=== PATIENT | female | born 1965 | race Caucasian/White ===

== ENCOUNTER 2016-04-16 16:44 | Emergency (ER) | payer OTHER ==
--- NOTE | 2016-04-16 17:46 | UC ---
Respiratory Complaint HPI - HPI Summary HPI Summary: low grade temp body aches cough, felt a little light headed today - History of Current Complaint Chief Complaint: UCGeneralIllness Stated Complaint: COUGH/ACHEY Time Seen by Provider: 04/16/16 17:36 Hx Obtained From: Patient Hx Last Menstrual Period: 04/15/16 ?: No Onset/Duration: Gradual Onset, Lasting Days - 2 Timing: Constant Severity Initially: Mild Character: Cough: Nonproductive Aggravating Factors: Nothing Alleviating Factors: Nothing Associated Signs And Symptoms: Positive: Fever, Pleuritic Chest Pain, URI - Allergies/Home Medications Allergies/Adverse Reactions: Allergies Allergy/AdvReac Type Severity Reaction Status Date / Time Latex Allergy Intermediate RASH, Verified 04/16/16 17:42 IRRITATION Sulfa Antibiotics Allergy Intermediate Rash Verified 04/16/16 17:42 Eggs or Egg-derived Products Allergy Mild water Verified 04/16/16 17:42 blisters Home Medications: Home Medications Ibuprofen TAB* [Advil TAB*] 200 mg PO Q6H PRN 04/16/16 [History Confirmed ] [id number] [Nyquil Severe Cold/Flu 5-6.25-10-325 mg/15Ml] 15 ml PO ONCE PRN 04/16/16 [History Confirmed 04/16/16] PMH/Surg Hx/FS Hx/Imm Hx Previously Healthy: Yes Endocrine History Of: Denies: Diabetes, Thyroid Disease, Hyperthyroidism, Hypothyroidism, Dyslipidemia Cardiovascular History Of: Denies: Cardiac Disorders, Hypertension, Pacemaker/ICD, Myocardial Infarction , Congestive Heart Failure, Atrial Fibrillation, Deep Vein Thrombosis, Bleeding Disorders Respiratory History Of: Denies: COPD, Asthma, Bronchitis, Pneumonia, Pulmonary Embolism GI/ History Of: Denies: Gastroesophageal Reflux, Ulcer, Gastrointestinal Bleed, Gall Bladder Disease, Kidney Stones, Diverticulitis, Renal Disease, Urosepsis Neurological History Of: Denies: TIA, CVA, Dementia, Seizures, Migraine Psychological History Of: Denies: Anxiety, Depression, Bipolar Disorder, Schizophrenia, Post Traumatic Stress Disorder Cancer History Of: Denies: Lung Cancer, Colorectal Cancer, Breast Cancer, Prostate Cancer, Cervical Cancer Other History Of: Negative For: HIV, Hepatitis B, Hepatitis C, Anticoagulant Therapy - Surgical History Surgical History: Yes Surgery Procedure, Year, and Place: EXCISION SKIN CA LEFT FOREHEAD - Family History Known Family History: Positive: None, Cardiac Disease, Other Negative: Renal Disease - Social History 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 Lives: Alone Alcohol Use: Rare Substance Use Type: None Smoking Status (MU): Former Smoker Type: Cigarettes Have You Smoked in the Last Year: No When Did the Patient Quit Smoking/Using Tobacco: 2009 - Immunization History Most Recent Influenza Vaccination: [id number] Review of Systems Constitutional: Fever, Fatigue Skin: Negative Eyes: Negative ENT: Negative Respiratory: Cough Cardiovascular: Negative Gastrointestinal: Negative Genitourinary: Negative Motor: Negative Neurovascular: Negative Musculoskeletal: Negative Neurological: Negative Psychological: Negative All Other Systems Reviewed And Are Negative: Yes Physical Exam Triage Information Reviewed: Yes Appearance: Well-Appearing, No Pain Distress, Well-Nourished Vital Signs: Initial Vital Signs Temp 99.3 F 04/16/16 17:32 Pulse 86 04/16/16 17:32 Resp 16 04/16/16 17:32 BP 103/59 04/16/16 17:32 Pulse Ox 97 04/16/16 17:32 Vital Signs Reviewed: Yes Eye Exam: Normal Eyes: Positive: Conjunctiva Clear ENT Exam: Normal ENT: Positive: Normal ENT inspection, Hearing grossly normal, Pharynx normal, Nasal congestion, TMs normal. Negative: Nasal drainage, Tonsillar swelling, Tonsillar exudate, Trismus Neck exam: Normal Neck: Positive: Supple, Nontender, No Lymphadenopathy Respiratory Exam: Normal Respiratory: Positive: Chest non-tender, Lungs clear, Normal breath sounds, No respiratory distress, No accessory muscle use Cardiovascular Exam: Normal Cardiovascular: Positive: RRR, No Murmur, Pulses Normal, Brisk Capillary Refill Musculoskeletal Exam: Normal Musculoskeletal: Positive: Strength Intact, ROM Intact, No Edema Neurological Exam: Normal Neurological: Positive: Alert, Muscle Tone Normal Psychological Exam: Normal Skin Exam: Normal UC Diagnostic Evaluation - Laboratory O2 Sat by Pulse Oximetry: 97 Diagnostic Studies Comment: Rapid Influenza A/B (-) Respiratory Course/Dx - Course Course Of Treatment: rest increase fluids, albuterol for bronchospastic cough, zithromax, follow with pcp re-check prn - Differential Dx/Diagnosis Differential Diagnosis/HQI/PQRI: Asthma, Bronchitis, Laryngitis, Sinusitis Provider Diagnoses: Bronchitis Discharge - Discharge Plan Condition: Stable Disposition: HOME Prescriptions: Albuterol HFA INHALER* [Ventolin HFA Inhaler*] 2 puff INH Q4H PRN #1 mdi PRN Reason: cough Azithromycin TAB* [Zithromax TAB (Z-BOBBY) 250 mg #6 tabs] 2 tab PO .TODAY, THEN 1 DAILY #1 bobby Patient Education Materials: Dehydration (ED), Acute Bronchitis (ED), Viral Syndrome (ED) Forms: *Work Release Referrals: No Primary Care Phys,NOPCP [Primary Care Provider] -
[2016-04-16 18:24] VITALS: BP 102/69
== END 2016-04-16 19:11 | disposition home or self-care (01) ==
LOC: UCCORT 16:44
DX: J40 Bronchitis, not specified as acute or chronic (principal); Z85.828 Personal history of other malignant neoplasm of skin; Z87.891 Personal history of nicotine dependence; Z88.2 Allergy status to sulfonamides
CPT/HCPCS: 87502; 99212; G0463

== ENCOUNTER 2016-11-04 20:30 | Emergency (ER) | payer SELFPAY ==
[2016-11-04 20:38] VITALS: BP 126/77
--- NOTE | 2016-11-04 20:48 | UC ---
Skin Complaint HPI - HPI Summary HPI Summary: 51 YEAR OLD FEMALE PRESENTS WITH COMPLAINS ABSCESS OF HER RIGHT UPPER LABIA MAJORA. NOT TYPICAL POSITIONING FOR A BARTOLIN CYSTS - History of Current Complaint Chief Complaint: UCGeneralIllness Time Seen by Provider: 11/04/16 20:43 Stated Complaint: RASH Hx Obtained From: Patient Hx Last Menstrual Period: 11/07/16 Onset/Duration: Sudden Onset Skin Exposure Onset/Duration: Days Ago Onset Severity: Moderate Current Severity: Moderate Pain Scale Used: 0-10 Numeric - 5 Location: Diffuse Aggravating: Nothing Alleviating: Nothing Associated Signs & Symptoms: Positive: Negative - Allergy/Home Medications Allergies/Adverse Reactions: Allergies Allergy/AdvReac Type Severity Reaction Status Date / Time Latex Allergy Intermediate RASH, Verified 11/04/16 20:33 IRRITATION Sulfa Antibiotics Allergy Intermediate Rash Verified 11/04/16 20:33 Eggs or Egg-derived Products Allergy Mild water Verified 11/04/16 20:33 blisters Review of Systems Constitutional: Negative Skin: Negative Eyes: Negative ENT: Negative Respiratory: Negative Cardiovascular: Negative Gastrointestinal: Negative Genitourinary: Other - RIGHT UPPER LABIA MAJORA ABSCESS Motor: Negative Neurovascular: Negative Musculoskeletal: Negative Neurological: Negative Psychological: Negative All Other Systems Reviewed And Are Negative: Yes PMH/Surg Hx/FS Hx/Imm Hx Previously Healthy: Yes Other History Of: Negative For: HIV, Hepatitis B, Hepatitis C, Anticoagulant Therapy - Surgical History Surgical History: Yes Surgery Procedure, Year, and Place: EXCISION SKIN CA LEFT FOREHEAD - Family History Known Family History: Positive: None, Cardiac Disease, Other Negative: Renal Disease - Social History Alcohol Use: Rare Substance Use Type: None Smoking Status (MU): Former Smoker Type: Cigarettes Have You Smoked in the Last Year: No When Did the Patient Quit Smoking/Using Tobacco: 2009 - Immunization History Most Recent Influenza Vaccination: [id number] Physical Exam Triage Information Reviewed: Yes Vital Signs: Initial Vital Signs Temp 36.6 C 11/04/16 20:34 Pulse 67 11/04/16 20:34 Resp 16 11/04/16 20:34 BP 126/77 11/04/16 20:34 Pulse Ox 99 11/04/16 20:34 Vital Signs Reviewed: Yes Eye Exam: Normal ENT Exam: Normal Dental Exam: Normal Neck exam: Normal Neck: Positive: 1 Respiratory Exam: Normal Cardiovascular Exam: Normal Abdominal Exam: Normal Musculoskeletal Exam: Normal Neurological Exam: Normal Psychological Exam: Normal Skin: Positive: Other - RIGHT UPPER LABIA MAJORA ABSCESS Course/Dx - Differential Diagnoses - Skin Complaint Differential Diagnoses: Abscess - Diagnoses Provider Diagnoses: RIGHT LABIA MAJORA ABSCESS Discharge - Discharge Plan Condition: Stable Disposition: HOME Prescriptions: DOXYcycline CAP(*) [DOXYcycline 100MG CAP(*)] 100 mg PO BID #14 cap Fluconazole [Fluconazole 150 mg tab] 150 mg PO ONCE #1 tab Mupirocin 2% OINT* [Bactroban 2 % Oint*] 1 applic TOPICAL BID #1 tube Patient Education Materials: Abscess (ED) Referrals: No Primary Care Phys,NOPCP [Primary Care Provider] -
[2016-11-04] MEDS ORDERED: DOXYcycline CAP(*) 100 MG PO ONE (20:49)
== END 2016-11-04 21:08 | disposition home or self-care (01) ==
LOC: UCEAST 20:30
DX: N76.4 Abscess of vulva (principal); Z88.2 Allergy status to sulfonamides; Z91.012 Allergy to eggs; Z91.040 Latex allergy status; Z87.891 Personal history of nicotine dependence
CPT/HCPCS: 99212; A9270-GY; G0463

== ENCOUNTER 2017-03-06 21:14 | Emergency (ER) | payer BC ==
[2017-03-06 21:35] VITALS: BP 116/74
--- NOTE | 2017-03-06 22:13 | UC ---
Karolyn Andino Nilda, scribed for Dinh Andrews MD on 03/06/17 at 2203 . Back Pain HPI - HPI Summary HPI Summary: This patient is a 51 year old F [place] [facility] [place] a chief complaint of moderate, intermittent throbbing pain in right back under shoulder that wraps around side to right rib cage for the past few months. Pain has gradually become worse to the point where pt "can no longer ignore it." At its worse, pain is rated 7-8 in severity and at its mildest pain is rated 3-4. The patient rates the current pain 6/10 in severity. Symptoms aggravated by deep inspiration. Symptoms alleviated by stretching and exercise. Patient reports dry cough, sore throat (past few days, resolved), and cramping in bilat LE and feet. Patient denies loss of appetite, bowel and urinary issues, and SOB. 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 - History of Current Complaint Chief Complaint: UCBackPain Stated Complaint: RIB,SHOULDER & BACK PAIN Time Seen by Provider: 03/06/17 21:39 Hx Obtained From: Patient Hx Last Menstrual Period: 02/22/17 Onset/Duration: Gradual Onset, Lasting Weeks, Still Present Timing: Intermittent Severity Currently: Moderate Pain Intensity: 6 Pain Scale Used: 0-10 Numeric Back Pain: Is Discrete @ - throbbing pain in right back under right shoulder that radiates to right rib cage for the past few months Character: Throbbing Aggravating Factor(s): Other - deep breathing Alleviating Factor(s): Other - stretching, exercise Associated Signs And Symptoms: Positive: Other - Patient reports dry cough, sore throat (past few days, resolved), and cramping in LE and feet. Patient denies loss of appetite, bowel and urinary issues, and SOB. - Allergies/Home Medications Allergies/Adverse Reactions: Allergies Allergy/AdvReac Type Severity Reaction Status Date / Time Latex Allergy Intermediate RASH, Verified 03/06/17 21:36 IRRITATION Sulfa Antibiotics Allergy Intermediate Rash Verified 03/06/17 21:36 Eggs or Egg-derived Products Allergy Mild water Verified 03/06/17 21:36 blisters SPIDER BITES Allergy Severe Swelling Uncoded 03/06/17 21:36 Home Medications: Home Medications Collagen* 1 tab PO DAILY 03/06/17 [History Confirmed 03/06/17] Multiple Vitamins W/ Minerals [Multivitamin Adults] 1 tab PO DAILY 03/06/17 [ History Confirmed 03/06/17] Probiotic Product [Acidophilus] 1 cap PO DAILY 03/06/17 [History Confirmed 03/06] PMH/Surg Hx/FS Hx/Imm Hx - Additional Past Medical History Additional PMH: MRSA Other History Of: Negative For: HIV, Hepatitis B, Hepatitis C, Anticoagulant Therapy - Surgical History Surgical History: Yes Surgery Procedure, Year, and Place: EXCISION SKIN CA LEFT FOREHEAD - Family History Known Family History: Negative: Cardiac Disease, Renal Disease - Social History 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 Alcohol Use: Rare Substance Use Type: None Smoking Status (MU): Former Smoker Type: Cigarettes Have You Smoked in the Last Year: No When Did the Patient Quit Smoking/Using Tobacco: 2009 - Immunization History Most Recent Influenza Vaccination: [id number] Review of Systems ENT: Sore Throat - resolved Respiratory: Cough - dry cough, Other - negative SOB Gastrointestinal: Other - negative loss of appetite, bowel issues Genitourinary: Other - negative urinary issues Musculoskeletal: Other: - throbbing pain in right back under right shoulder that wraps around side to right rib cage, intermittent cramping in LE and feet All Other Systems Reviewed And Are Negative: Yes Physical Exam Triage Information Reviewed: Yes Vital Signs: Initial Vital Signs Temp 97.4 F 03/06/17 21:31 Pulse 83 03/06/17 21:31 Resp 16 03/06/17 21:31 BP 116/74 03/06/17 21:31 Pulse Ox 96 03/06/17 21:31 Vital Signs Reviewed: Yes - Additional Comments General: well-appearing, no pain distress Skin: warm, color reflects adequate perfusion, dry Head: normal Eyes: EOMI, ANGEL ENT: normal Neck: supple, nontender Respiratory: CTA, breath sounds present Cardiovascular: RRR Abdomen: soft, nontender Bowel: present Musculoskeletal: strength/ROM intact, tender to palpation on lower lumbar in right paraspinal muscles; pt states this was the pain she came in with. Calves normal. Neurological: normal, sensory/motor intact, A&O x3 Psychological: affect/mood appropriate Diagnostics - EKG Cardiac Rate: NL Cardiac Rhythm: Sinus: Normal - 77bpm Ectopy: None ST Segment: Normal Back Pain Course/Dx - Course Course Of Treatment: Medications reviewed. Allergies noted. An EKG reveals NSR , 77 bpm, normal ST, no ectopy. TENDER TO PALPATION RT LOWER THORACIC BACK; THIS REPRODUCES HER PAIN. F/U PMD; RETURN IF WORSE. - Differential Dx/Diagnosis Provider Diagnoses: THORACIC BACK PAIN Discharge - Discharge Plan Condition: Stable Disposition: HOME Patient Education Materials: Back Pain (ED) Referrals: Kierra Barney DO [Primary Care Provider] - Additional Instructions: FOLLOW UP WITH YOUR DOCTOR. GET RECHECKED FOR ANY WORSENING OF YOUR CONDITION; CHEST OR ABDOMINAL PAIN, FEVER, SHORTNESS OF BREATH, YOU FEEL ILL OR QUESTIONS OR CONCERNS. The documentation as recorded by the Karolyn amaro Nilda accurately reflects the service I personally performed and the decisions made by me, Dinh Andrews MD.
== END 2017-03-06 22:09 | disposition home or self-care (01) ==
LOC: UCEAST 21:14
DX: M54.6 Pain in thoracic spine (principal); R07.81 Pleurodynia; M25.511 Pain in right shoulder; Z91.030 Bee allergy status; Z91.012 Allergy to eggs; Z91.040 Latex allergy status; Z88.2 Allergy status to sulfonamides; Z87.891 Personal history of nicotine dependence
CPT/HCPCS: 93005; 99211; G0463

== ENCOUNTER 2017-08-01 08:18 | Emergency (ER) | payer BC ==
[2017-08-01 08:47] VITALS: BP 125/69
--- NOTE | 2017-08-01 09:24 | UC ---
Conor Andino Stephanie, [facility] for [facility] on 08/01/17 at 0858 . Complaint Female HPI - HPI Summary HPI Summary: In Room Note: The pt is a 52 y/o F presenting to with c/o vaginal itching that began on 07/28/17. Symptoms include redness on the outside of her vulva. The pt denies vaginal odor/ discharge. The pt denies hx of STDs. She reports abstinence for 7 months. She reports she has not been taking care of her body for the past few weeks. Note: Vital signs stable. Afebrile. Visit hx: intermittent UTI. Multiple allergies including sulfa. Using monostat, possible MRSA, February 2017. Nurse Note: "I think I have BV" Itching and irritation started about 3-4 days ago, thought it was a yeast infection using monostat for 3 days. No Odor and no Discharge. - History Of Current Complaint Chief Complaint: UCGeneralIllness Stated Complaint: PERSONAL Time Seen by Provider: 08/01/17 08:34 Hx Obtained From: Patient Hx Last Menstrual Period: 07/17/17 ?: No Onset/Duration: Gradual Onset, Lasting Days - 4, Still Present Timing: Constant Severity Currently: Mild Pain Intensity: 0 Pain Scale Used: 0-10 Numeric Aggravating Factor(s): Nothing Alleviating Factor(s): Nothing Associated Signs And Symptoms: Negative: Fever, Vaginal Bleeding/Discharge, Vaginal Discharge - Allergies/Home Medications Allergies/Adverse Reactions: Allergies Allergy/AdvReac Type Severity Reaction Status Date / Time egg Allergy Blisters Verified 08/01/17 08:39 Egg Derived Allergy Blisters Verified 08/01/17 08:39 latex Allergy Rash Verified 08/01/17 08:39 Sulfa (Sulfonamide Allergy Rash Verified 08/01/17 08:39 Antibiotics) SPIDER BITES Allergy Severe Swelling Uncoded 03/06/17 21:36 Home Medications: Home Medications Monostat 1 tab PO DAILY 08/01/17 [History] PMH/Surg Hx/FS Hx/Imm Hx Previously Healthy: Yes - She denies diabetes. Other History Of: Negative For: HIV, Hepatitis B, Hepatitis C, Anticoagulant Therapy - Surgical History Surgical History: Yes Surgery Procedure, Year, and Place: EXCISION SKIN CA LEFT FOREHEAD - Family History Known Family History: Positive: Other Negative: Cardiac Disease, Renal Disease - Social History 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 Lives: With Family Alcohol Use: Rare Substance Use Type: None Smoking Status (MU): Former Smoker Type: Cigarettes Have You Smoked in the Last Year: No When Did the Patient Quit Smoking/Using Tobacco: 2009 - Immunization History Most Recent Influenza Vaccination: [id number] Most Recent Tetanus Shot: UTD Review of Systems Constitutional: Negative Skin: Negative Eyes: Negative ENT: Negative Respiratory: Negative Cardiovascular: Negative Gastrointestinal: Negative Genitourinary: Vaginal/Penile Itching, Vaginal/Penile Tenderness Motor: Negative Neurovascular: Negative Musculoskeletal: Negative Neurological: Negative Psychological: Negative All Other Systems Reviewed And Are Negative: Yes - Comments Additional Review of Systems Comments: POSITIVE: VAGINAL ITCHING, ERYTHEMA NEGATIVE: VAGINAL ODOR, VAGINAL DISCHARGE Physical Exam - Summary Physical Exam Summary: Appearance: The patient is well-appearing, is in no pain distress, and is well- nourished. Eyes: Conjunctiva are clear. ENT: The hearing is grossly normal, the pharynx is normal, and the TMs are normal. There is no muffled or hoarse voice. Neck: The neck is supple and there is no lymphadenopathy. Respiratory: The chest is nontender. The lungs are clear, there are normal breath sounds, and there is no respiratory distress. Cardiovascular: Heart is regular rate and rhythm. There is no murmur. Abdomen: The abdomen is soft and nontender. There is no organomegaly. Bowel sounds: present Musculoskeletal: Strength is intact. The patient moves all extremities. Neurological: The patient is alert. Psychological: The patient displays age appropriate behavior Skin: Negative for rashes. EXTERNAL GENITALIA EXAM: INJECTED IRRITATED MUCOSA AT THE BASE OF THE VAGINAL OPENING. NO CELULITIS OR LYMPHANGITIS. TO PALPATION THE AREA FEELS IRRITATED BUT NOT TENDER TO THE PT. Triage Information Reviewed: Yes Vital Signs: Initial Vital Signs Temp 97.3 F 08/01/17 08:39 Pulse 66 08/01/17 08:39 Resp 18 08/01/17 08:39 BP 125/69 08/01/17 08:39 Pulse Ox 100 08/01/17 08:39 Vital Signs Reviewed: Yes Complaint Female Dx - Course Course Of Treatment: Medications have been included in the original chart and reviewed. Patient presents with irritation of the external genitalia, at the entrance inferiorly. She does not have discharge. She is not sexually active. My diagnosis is skin irritation. There is no sign of cellulitis or lymphangitis. She has been instructed to decrease the number of times she uses soap to this area and to use triple antibiotic ointment 3 times a day to protect from abrasion. She will follow-up if there are any signs of cellulitis. - Differential Dx/Diagnosis Differential Diagnosis/HQI/PQRI: Bartholin Cyst, Sexually Transmitted Disease Provider Diagnoses: abrasion of mucosa of the vaginal entrance, inferior Discharge - Sign-Out/Discharge Documenting (check all that apply): Discharge/Admit/Transfer - Discharge Plan Condition: Stable Disposition: HOME Patient Education Materials: Yeast Infection (ED), Vaginitis (ED) Referrals: Christina Garvin MD [Primary Care Provider] - Additional Instructions: PLEASE SEEK CARE AT THE EMERGENCY DEPARTMENT IF SYMPTOMS WORSEN OR IF NEW SYMPTOMS DEVELOP. FOLLOW UP WITH YOUR PRIMARY CARE PHYSICIAN. As we discussed, you do not appear to have bacterial vaginosis or yeast. I've given him information about both these conditions. It is most likely have localized irritation from over washing the area around the entrance to the vagina. Use triple antibiotic ointment. The ointment as important so that it creates a barrier. Do not use soap frequently to this area. Given a opportunity to heal. Watch for any signs of infection which would include increased redness, red streaks, pain or temperature. Recheck at any time for any questions or concerns. - Billing Disposition and Condition Condition: STABLE Disposition: Home The documentation as recorded by the Conor amaro Stephanie accurately reflects the service I personally performed and the decisions made by me, Valentino Escobar MD.
== END 2017-08-01 09:25 | disposition home or self-care (01) ==
LOC: UCEAST 08:18
DX: S30.814A Abrasion of vagina and vulva, initial encounter (principal); X58.XXXA Exposure to other specified factors, initial encounter; Y93.9 Activity, unspecified; Y92.9 Unspecified place or not applicable; Z87.440 Personal history of urinary (tract) infections; Z88.2 Allergy status to sulfonamides; Z91.012 Allergy to eggs; Z91.040 Latex allergy status; Z87.891 Personal history of nicotine dependence
CPT/HCPCS: 99211; G0463

== ENCOUNTER 2017-08-02 19:06 | Emergency (ER) | payer BC ==
[2017-08-02 19:22] VITALS: BP 122/65
--- NOTE | 2017-08-02 19:23 | UC ---
Complaint Female HPI - HPI Summary HPI Summary: 52 yo female presents with vaginal redness, irritation, and notice some discharge this morning. She tells me that she was seen yesterday at the [facility] urgent care for the same issue and told it was skin irritation due to excessive washing - she does not agree with this diagnosis. Her vaginal irritation began about a week ago and has been using monistat OTC with no relief of her symptoms. Says she has not been sexually active in over 6 months and has no concern for STD or testing today. Denies dysuria, flank pain, abdominal pain, n/ v/d/c. - History Of Current Complaint Chief Complaint: UCGU Stated Complaint: PERSONAL Time Seen by Provider: 08/02/17 19:18 Hx Obtained From: Patient Hx Last Menstrual Period: [id number] Onset/Duration: Gradual Onset Timing: Constant Severity Currently: None Pain Intensity: 0 - Allergies/Home Medications Allergies/Adverse Reactions: Allergies Allergy/AdvReac Type Severity Reaction Status Date / Time egg Allergy Blisters Verified 08/02/17 19:23 Egg Derived Allergy Blisters Verified 08/02/17 19:23 latex Allergy Rash Verified 08/02/17 19:23 Sulfa (Sulfonamide Allergy Rash Verified 08/02/17 19:23 Antibiotics) SPIDER BITES Allergy Severe Swelling Uncoded 08/02/17 19:23 PMH/Surg Hx/FS Hx/Imm Hx - Additional Past Medical History Additional PMH: None Other History Of: Negative For: HIV, Hepatitis B, Hepatitis C, Anticoagulant Therapy - Surgical History Surgical History: Yes Surgery Procedure, Year, and Place: EXCISION SKIN CA LEFT FOREHEAD - Family History Known Family History: Positive: None, Other Negative: Cardiac Disease, Renal Disease - Social History 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 Lives: With Family Alcohol Use: Rare Substance Use Type: None Smoking Status (MU): Former Smoker Type: Cigarettes Have You Smoked in the Last Year: No When Did the Patient Quit Smoking/Using Tobacco: 2009 - Immunization History Most Recent Influenza Vaccination: [id number] Most Recent Tetanus Shot: UTD Review of Systems Constitutional: Negative Skin: Negative Respiratory: Negative Cardiovascular: Negative Genitourinary: Vaginal/Penile Itching, Vaginal/Penile Discharge Neurovascular: Negative Neurological: Negative Psychological: Negative All Other Systems Reviewed And Are Negative: Yes Physical Exam - Summary Physical Exam Summary: GENERAL: NAD. WDWN. No pain distress. SKIN: No rashes, sores, lesions, or open wounds. NECK: Supple. Nontender. No lymphadenopathy. CHEST: No accessory muscle use. Breathing comfortably and in no distress. CV: Pulses intact. Brisk cap refill. ABDOMEN: Soft. NTTP. No distention or guarding. No CVA tenderness. Bowel sounds present NEURO: Alert. CN II-XII grossly intact. PSYCH: Age appropriate behavior. Triage Information Reviewed: Yes Vital Signs: Initial Vital Signs Temp 98.3 F 08/02/17 19:18 Pulse 87 08/02/17 19:18 Resp 16 08/02/17 19:18 BP 122/65 08/02/17 19:18 Pulse Ox 99 08/02/17 19:18 Pelvic Exam: Positive: External Exam Normal, No Cerv. Motion Tender, No Masses, Discharge - Mild thin white and yellow, Other - Alexia RN present and assisted during the exam. Negative: Active Bleeding, Lesions, Mass, Tender w/ Cervical Motion Complaint Female Dx - Course Course Of Treatment: Culture taken for BV/Yeast. Suspect BV and will treat with flagyl. - Differential Dx/Diagnosis Provider Diagnoses: Bacterial vaginosis Discharge - Sign-Out/Discharge Documenting (check all that apply): Discharge/Admit/Transfer - Discharge Plan Condition: Stable Disposition: HOME Prescriptions: metroNIDAZOLE [Flagyl] 500 mg PO BID #14 tablet Patient Education Materials: Bacterial Vaginosis (ED) Referrals: Christina Garvin MD [Primary Care Provider] - Additional Instructions: If you develop a fever, shortness of breath, chest pain, new or worsening symptoms - please call your PCP or go to the ED. - Billing Disposition and Condition Condition: STABLE Disposition: Home
== END 2017-08-02 19:45 | disposition home or self-care (01) ==
LOC: UCCORT 19:06
DX: N76.0 Acute vaginitis (principal); B96.89 Other specified bacterial agents as the cause of diseases classified elsewhere; Z91.012 Allergy to eggs; Z91.040 Latex allergy status; Z88.2 Allergy status to sulfonamides; Z91.09 Other allergy status, other than to drugs and biological substances; Z87.891 Personal history of nicotine dependence
CPT/HCPCS: 87480; 87510; 99212; G0463

== ENCOUNTER 2017-12-06 13:22 | Emergency (ER) | payer SELFPAY ==
[2017-12-06 14:00] VITALS: BP 117/68
--- NOTE | 2017-12-06 15:16 | ED ---
Throat Pain/Nasal Congestion - HPI Summary HPI Summary: 52 yr old female with the complaint of sinus pressure in bilateral maxillary areas, post nasal drip, scratchy throat. Onset 5 days ago. No fever or chills. She works at [employer]. No SOB. - History of Current Complaint Chief Complaint: UCGeneralIllness Time Seen by Provider: 12/06/17 14:47 - Allergies/Home Medications Allergies/Adverse Reactions: Allergies Allergy/AdvReac Type Severity Reaction Status Date / Time egg Allergy Blisters Verified 12/06/17 13:55 Egg Derived Allergy Blisters Verified 12/06/17 13:55 latex Allergy Rash Verified 12/06/17 13:55 Sulfa (Sulfonamide Allergy Rash Verified 12/06/17 13:55 Antibiotics) SPIDER BITES Allergy Severe Swelling Uncoded 12/06/17 13:55 Home Medications: Home Medications Acetaminophen TAB* [Tylenol TAB*] 650 mg PO Q4H PRN 12/06/17 [History Confirmed 12/06/17] Brompheniram/Phenylephrine/Dm [Dimetapp Dm Cold & Cough] 1 liq PO SEE INSTRUCTIONS PRN 12/06/17 [History Confirmed 12/06/17] Ibuprofen TAB* [Advil TAB*] 400 mg PO Q6H PRN 12/06/17 [History Confirmed ] Vitamin THERAPEUTIC TAB* [Theragran TAB*] 1 tab PO DAILY 12/06/17 [History Confirmed 12/06/17] PMH/Surg Hx/FS Hx/Imm Hx Endocrine/Hematology History: Denies: Hx Anticoagulant Therapy, Hx Diabetes, Hx Thyroid Disease Cardiovascular History: Denies: Hx Congestive Heart Failure, Hx Deep Vein Thrombosis, Hx Hypertension , Hx Myocardial Infarction, Hx Pacemaker/ICD Respiratory History: Denies: Hx Asthma, Hx Chronic Obstructive Pulmonary Disease (COPD), Hx Lung Cancer, Hx Pneumonia, Hx Pulmonary Embolism GI History: Denies: Hx Gall Bladder Disease, Hx Gastrointestinal Bleed, Hx Ulcer, Hx Urosepsis History: Denies: Hx Kidney Stones, Hx Renal Disease Neurological History: Denies: Hx Dementia, Hx Migraine, Hx Seizures, Hx Transient Ischemic Attacks (TIA) Psychiatric History: Denies: Hx Anxiety, Hx Depression, Hx Schizophrenia, Hx Bipolar Disorder - Cancer History Cancer Type, Location and Year: skin cancer- removed - Surgical History Surgery Procedure, Year, and Place: EXCISION SKIN CA LEFT FOREHEAD Infectious Disease History: No Infectious Disease History: Reports: Hx of Known/Suspected MRSA Denies: Hx Clostridium Difficile, Hx Hepatitis, Hx Human Immunodeficiency Virus (HIV), Hx Shingles, Hx Tuberculosis, Hx Known/Suspected VRE, Hx Known/ Suspected VRSA, History Other Infectious Disease, Traveled Outside the [place] in Last 30 Days - Family History Known Family History: Positive: None, Other Negative: Cardiac Disease, Renal Disease - Social History 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, 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 Alcohol Use: Rare Substance Use Type: Reports: None Smoking Status (MU): Former Smoker Type: Cigarettes Have You Smoked in the Last Year: No Review of Systems Constitutional: Negative Eyes: Negative Positive: Sore Throat, Nasal Discharge All Other Systems Reviewed And Are Negative: Yes Physical Exam Triage Information Reviewed: Yes Vital Signs On Initial Exam: Initial Vitals Temp Pulse Resp BP Pulse Ox 98.5 F 70 16 117/68 98 12/06/17 13:52 12/06/17 13:52 12/06/17 13:52 12/06/17 13:52 12/06/17 13:52 Vital Signs Reviewed: Yes Appearance: Positive: Well-Appearing, No Pain Distress Skin: Positive: Warm, Skin Color Reflects Adequate Perfusion Head/Face: Positive: Normal Head/Face Inspection Eyes: Positive: EOMI, ANGEL ENT: Positive: Pharyngeal erythema, Nasal congestion, TMs normal, Sinus tenderness - bilateral maxillary Neck: Positive: Nontender Respiratory/Lung Sounds: Positive: Clear to Auscultation, Breath Sounds Present Cardiovascular: Positive: RRR. Negative: Murmur Abdomen Description: Positive: Nontender Musculoskeletal: Positive: Strength/ROM Intact Neurological: Positive: Sensory/Motor Intact, Alert, Oriented to Person Place, Time, CN Intact II-III Psychiatric: Positive: Normal - [place] Coma Scale Best Eye Response: 4 - Spontaneous Best Motor Response: 6 - Obeys Commands Best Verbal Response: 5 - Oriented Coma Scale Total: 15 Diagnostics - Vital Signs Vital Signs Temp Pulse Resp BP Pulse Ox 12/06/17 13:52 98.5 F 70 16 117/68 98 - Laboratory Lab Statement: Any lab studies that have been ordered have been reviewed, and results considered in the medical decision making process. EENT Course/Dx - Course Course Of Treatment: 52 yr old with sinusitis. Rx with augmentin. - Diagnoses Provider Diagnoses: Sinusitis Discharge - Sign-Out/Discharge Documenting (check all that apply): Patient Departure All imaging exams completed and their final reports reviewed: No Studies - Discharge Plan Condition: Good Disposition: HOME Prescriptions: Amoxicillin/Clavulanate TAB* [Augmentin TAB 875*] 875 mg PO BID #20 tab Patient Education Materials: Sinusitis (ED) Referrals: Christina Garvin MD [Primary Care Provider] - 2 Days - Billing Disposition and Condition Condition: GOOD Disposition: Home
== END 2017-12-06 15:21 | disposition home or self-care (01) ==
LOC: UCCORT 13:22
DX: J32.9 Chronic sinusitis, unspecified (principal); Z88.1 Allergy status to other antibiotic agents; Z87.891 Personal history of nicotine dependence
CPT/HCPCS: 99212; G0463

== ENCOUNTER 2018-01-01 07:26 | Emergency (ER) | payer BC ==
[2018-01-01 07:48] VITALS: BP 111/51
--- NOTE | 2018-01-01 08:46 | UC ---
Throat Pain/Nasal [place] HPI - HPI Summary HPI Summary: 52 yo c/o sore throat x7-10 days, burning associated with cold symptoms that have mostly resolved but sore throat continues. States 18 days ago completed a course of augmentin for 10 days due to pharyngitis and it had resolved but recurred again. She does not want to take another course of antibiotics. LMD DEC 08 2017, no other PMH - History of Current Complaint Chief Complaint: UCRespiratory Stated Complaint: ST Time Seen by Provider: 01/01/18 07:43 Hx Obtained From: Patient Hx Last Menstrual Period: 12/16/17 Onset/Duration: Sudden Onset, Lasting Days Severity: Moderate Pain Intensity: 5 Cough: Nonproductive Associated Signs & Symptoms: Positive: Nasal Discharge - Epiglottits Risk Factors Epiglottis Risk Factors: Negative - Allergies/Home Medications Allergies/Adverse Reactions: Allergies Allergy/AdvReac Type Severity Reaction Status Date / Time egg Allergy Blisters Verified 01/01/18 07:42 Egg Derived Allergy Blisters Verified 01/01/18 07:42 latex Allergy Rash Verified 01/01/18 07:42 Sulfa (Sulfonamide Allergy Rash Verified 01/01/18 07:42 Antibiotics) SPIDER BITES Allergy Severe Swelling Uncoded 01/01/18 07:42 PMH/Surg Hx/FS Hx/Imm Hx Previously Healthy: Yes Other History Of: Negative For: HIV, Hepatitis B, Hepatitis C, Anticoagulant Therapy - Surgical History Surgical History: Yes Surgery Procedure, Year, and Place: EXCISION SKIN CA LEFT FOREHEAD - Family History Known Family History: Positive: None, Other Negative: Cardiac Disease, Renal Disease - Social History Alcohol Use: Rare Substance Use Type: None Smoking Status (MU): Former Smoker Type: Cigarettes Have You Smoked in the Last Year: No When Did the Patient Quit Smoking/Using Tobacco: 2009 - Immunization History Most Recent Influenza Vaccination: [id number] Most Recent Tetanus Shot: UTD Review of Systems All Other Systems Reviewed And Are Negative: Yes ENT: Positive: Sore Throat, Nasal Discharge Respiratory: Positive: Cough Physical Exam Triage Information Reviewed: Yes Appearance: Well-Appearing, Obese Vital Signs: Initial Vital Signs Temp 98 F 01/01/18 07:40 Pulse 66 01/01/18 07:40 Resp 16 01/01/18 07:40 BP 111/51 01/01/18 07:40 Pulse Ox 99 01/01/18 07:40 Vital Signs Reviewed: Yes Eyes: Positive: Conjunctiva Clear ENT: Positive: Hearing grossly normal, Pharyngeal erythema, TMs normal, Uvula midline Neck: Positive: Supple, Nontender, No Lymphadenopathy Respiratory: Positive: Chest non-tender, Lungs clear, Normal breath sounds Cardiovascular: Positive: RRR, No Murmur, Pulses Normal, Brisk Capillary Refill Abdomen Description: Positive: Nontender Throat Pain/Nasal Course/Dx - Course Course Of Treatment: viral pharyngitis/stomatitis start magic mouth wash and supportive measures. - Differential Dx/Diagnosis Provider Diagnoses: Viral pharyngitis/stomatitis Discharge - Sign-Out/Discharge Documenting (check all that apply): Patient Departure All imaging exams completed and their final reports reviewed: No Studies - Discharge Plan Condition: Stable Disposition: HOME Patient Education Materials: Oral Mucositis (ED) Referrals: Christina Garvin MD [Primary Care Provider] - - Billing Disposition and Condition Condition: STABLE Disposition: Home
== END 2018-01-01 08:58 | disposition home or self-care (01) ==
LOC: UCCORT 07:26
DX: J02.9 Acute pharyngitis, unspecified (principal); K12.1 Other forms of stomatitis; Z87.891 Personal history of nicotine dependence; Z88.1 Allergy status to other antibiotic agents
CPT/HCPCS: 87651; 99212; G0463

== ENCOUNTER 2018-02-22 12:25 | Emergency (ER) | payer BC, OTHER ==
[2018-02-22 13:05] VITALS: BP 122/63
--- NOTE | 2018-02-23 09:24 | UC ---
Course/Dx - Diagnoses Provider Diagnoses: Back pain Discharge - Sign-Out/Discharge Documenting (check all that apply): Post-Discharge Follow Up All imaging exams completed and their final reports reviewed: No Studies - Discharge Plan Condition: Stable Disposition: HOME Prescriptions: Cyclobenzaprine TAB* [Flexeril 10 MG TAB*] 10 mg PO BID PRN #20 tab PRN Reason: Pain Naproxen [Naproxen 500 mg tab] 500 mg PO BID #20 tablet Patient Education Materials: Sciatica (ED) Forms: *Work Release Referrals: Christina Garvin MD [Primary Care Provider] - 7 Days - Billing Disposition and Condition Condition: STABLE Disposition: Home
--- NOTE | 2018-02-25 11:40 | UC ---
Back Pain HPI - HPI Summary HPI Summary: right lower back pain x 3 days pain is moderate, 6 out of 10 , radiation to his right lower ext worse with movements, better with rest and ibuprofen no fever, no chills, no urinary symptoms no numbness of lower ext. - History of Current Complaint Chief Complaint: UCBackPain Stated Complaint: BACK PAIN Time Seen by Provider: 02/22/18 13:10 Hx Obtained From: Patient Hx Last Menstrual Period: 12/16/17 Onset/Duration: Gradual Onset, Lasting Days - 3, Still Present Timing: Constant Severity Initially: Moderate Severity Currently: Moderate Pain Intensity: 6 Pain Scale Used: 0-10 Numeric Back Pain: Is Discrete @ - right lower back Character: Dull, Aching Aggravating Factor(s): Movement, Lifting, Bending Alleviating Factor(s): Rest, Cold, OTC Meds Associated Signs And Symptoms: Negative: Bruising, Fever, Weakness, Numbness, Tingling, Flank Pain, Weight Loss - Allergies/Home Medications Allergies/Adverse Reactions: Allergies Allergy/AdvReac Type Severity Reaction Status Date / Time egg Allergy Blisters Verified 02/22/18 12:57 Egg Derived Allergy Blisters Verified 02/22/18 12:57 latex Allergy Rash Verified 02/22/18 12:57 Sulfa (Sulfonamide Allergy Rash Verified 02/22/18 12:57 Antibiotics) SPIDER BITES Allergy Severe Swelling Uncoded 02/22/18 12:57 Home Medications: Home Medications Ibuprofen TAB* [Advil TAB*] 400 mg Q4HR PRN 02/22/18 [History Confirmed 02/22/18 ] PMH/Surg Hx/FS Hx/Imm Hx - Additional Past Medical History Additional PMH: L5 BULGING DISC Other History Of: Negative For: HIV, Hepatitis B, Hepatitis C, Anticoagulant Therapy - Surgical History Surgical History: Yes Surgery Procedure, Year, and Place: EXCISION SKIN CA LEFT FOREHEAD - Family History Known Family History: Positive: None, Other Negative: Cardiac Disease, Renal Disease - Social History Alcohol Use: Rare Substance Use Type: None Smoking Status (MU): Former Smoker Type: Cigarettes Have You Smoked in the Last Year: No When Did the Patient Quit Smoking/Using Tobacco: 2009 - Immunization History Most Recent Influenza Vaccination: [id number] Most Recent Tetanus Shot: UTD Review of Systems All Other Systems Reviewed And Are Negative: Yes Constitutional: Positive: Negative Skin: Positive: Negative Eyes: Positive: Negative ENT: Positive: Negative Is Patient Immunocompromised?: No Physical Exam Triage Information Reviewed: Yes Appearance: Well-Appearing, Well-Nourished, Pain Distress Vital Signs: Initial Vital Signs Temp 97.3 F 02/22/18 12:59 Pulse 70 02/22/18 12:59 Resp 16 02/22/18 12:59 BP 122/63 02/22/18 12:59 Pulse Ox 100 02/22/18 12:59 Vital Signs Reviewed: Yes Eye Exam: Normal Eyes: Positive: Conjunctiva Clear ENT: Positive: Normal ENT inspection, Hearing grossly normal Neck: Positive: Supple, Nontender, No Lymphadenopathy Respiratory: Positive: Chest non-tender, Lungs clear, Normal breath sounds Cardiovascular: Positive: RRR, No Murmur, Pulses Normal Abdominal Exam: Normal Abdomen Description: Positive: Nontender, No Organomegaly, Soft. Negative: CVA Tenderness (R), CVA Tenderness (L), Distended, Guarding Bowel Sounds: Positive: Present Musculoskeletal: Positive: Other: - lower back : no swelling, no erythema, no tenderness, limited ROM on flexion and extension due to pain Back Pain Course/Dx - Differential Dx/Diagnosis Provider Diagnosis: Back pain Discharge - Sign-Out/Discharge Documenting (check all that apply): Patient Departure All imaging exams completed and their final reports reviewed: No Studies - Discharge Plan Condition: Stable Disposition: HOME Prescriptions: Cyclobenzaprine TAB* [Flexeril 10 MG TAB*] 10 mg PO BID PRN #20 tab PRN Reason: Pain Naproxen [Naproxen 500 mg tab] 500 mg PO BID #20 tablet Patient Education Materials: Sciatica (ED) Forms: *Work Release Referrals: Christina Garvin MD [Primary Care Provider] - 7 Days - Billing Disposition and Condition Condition: STABLE Disposition: Home
== END 2018-02-22 13:53 | disposition home or self-care (01) ==
LOC: UCCORT 12:25
DX: M54.5 Low back pain (principal); Z88.2 Allergy status to sulfonamides; Z91.012 Allergy to eggs; Z91.040 Latex allergy status; Z87.891 Personal history of nicotine dependence
CPT/HCPCS: 99212; G0463

== ENCOUNTER 2018-06-22 13:18 | Emergency (ER) | payer BC ==
[2018-06-22 14:26] VITALS: BP 130/86
--- NOTE | 2018-06-22 15:00 | UC ---
Throat Pain/Nasal [place] HPI - HPI Summary HPI Summary: 52-year-old female presents with 2 week history of present worsening nasal congestion, sinus pressure, and postnasal drip. States symptoms were initially mild however began to worsen after she assisted a friend with cleaning out a birdcage. Denies fever, chills, ear pain, sore throat, cough, chest pain, or shortness of breath. - History of Current Complaint Chief Complaint: UCGeneralIllness Stated Complaint: SINUS ISSUE Time Seen by Provider: 06/22/18 14:45 Hx Obtained From: Patient Hx Last Menstrual Period: due a a few days Pain Intensity: 5 - Allergies/Home Medications Allergies/Adverse Reactions: Allergies Allergy/AdvReac Type Severity Reaction Status Date / Time egg Allergy Blisters Verified 06/22/18 14:21 Egg Derived Allergy Blisters Verified 06/22/18 14:21 latex Allergy Rash Verified 06/22/18 14:21 Sulfa (Sulfonamide Allergy Rash Verified 06/22/18 14:21 Antibiotics) SPIDER BITES Allergy Severe Swelling Uncoded 06/22/18 14:21 PMH/Surg Hx/FS Hx/Imm Hx Previously Healthy: Yes - Denies significant PMH Other History Of: Negative For: HIV, Hepatitis B, Hepatitis C, Anticoagulant Therapy - Surgical History Surgical History: Yes Surgery Procedure, Year, and Place: EXCISION SKIN CA LEFT FOREHEAD - Family History Known Family History: Positive: Non-Contributory - Social History 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 Lives: Alone Alcohol Use: Rare Substance Use Type: None Smoking Status (MU): Former Smoker Type: Cigarettes Have You Smoked in the Last Year: No When Did the Patient Quit Smoking/Using Tobacco: 2009 - Immunization History Most Recent Influenza Vaccination: [id number] Most Recent Tetanus Shot: UTD Review of Systems All Other Systems Reviewed And Are Negative: Yes Constitutional: Negative: Fever, Chills Skin: Negative: Rash Eyes: Negative: Drainage, Eye Redness ENT: Positive: Nasal Discharge, Sinus Congestion, Sinus Pain/Tenderness. Negative: Sore Throat, Ear Ache Respiratory: Negative: Shortness Of Breath, Cough Cardiovascular: Negative: Palpitations, Chest Pain Gastrointestinal: Positive: Negative Genitourinary: Positive: Negative Musculoskeletal: Positive: Negative Neurological: Positive: Negative Is Patient Immunocompromised?: No Physical Exam - Summary Physical Exam Summary: GENERAL APPEARANCE: Well developed, well nourished, alert and cooperative, and appears to be in no acute distress. EYES: Conjunctiva clear. No drainage. EARS: External auditory canals and tympanic membranes clear, hearing grossly intact. NOSE: Moderate nasal congestion with mucosal erythema and edema. No nasal discharge. Maxillary sinus tenderness. THROAT: Pharyngeal cobblestoning. No tonsilar inflammation, swelling, exudate, or lesions. Uvula midline. NECK: Neck supple, non-tender without lymphadenopathy. CARDIAC: Normal S1 and S2. No S3, S4 or murmurs. Rhythm is regular. There is no peripheral edema, cyanosis or pallor. Extremities are warm and well perfused. Capillary refill is less than 2 seconds. Peripheral pulses intact. LUNGS: Clear to auscultation without rales, rhonchi, wheezing or diminished breath sounds. ABDOMEN: Positive bowel sounds. Soft, nondistended, nontender. No guarding or rebound. No masses or hepatosplenomegally. MUSKULOSKELETAL: ROM intact to all extremities. No joint erythema or tenderness. Normal muscular development. Normal gait. SKIN: Skin normal color, texture and turgor with no lesions or eruptions. Triage Information Reviewed: Yes Vital Signs: Initial Vital Signs Temp 97.8 F 06/22/18 14:22 Pulse 64 06/22/18 14:22 Resp 16 06/22/18 14:22 BP 130/86 06/22/18 14: Pulse Ox 98 06/22/18 14:22 Vital Signs Reviewed: Yes Throat Pain/Nasal Course/Dx - Course Course Of Treatment: 52-year-old female presents with 2 week history of present worsening nasal congestion, sinus pressure, and postnasal drip. States symptoms were initially mild however began to worsen after she assisted a friend with cleaning out a birdcage. Denies fever, chills, ear pain, sore throat, cough, chest pain, or shortness of breath. Afebrile. Vital signs stable. Exam was remarkable for moderate nasal congestion with mucosal erythema and edema, maxillary sinus tenderness, and pharyngeal cobblestoning without tonsillar swelling, exudate, or cervical lymphadenopathy. Considering the duration of her symptoms I will treat her for an acute sinusitis with Augmentin 8 and 75 mg twice a day 10 days as well as symptomatic treatment including saline rinses and fluticasone nasal spray. She is to return here or follow-up with her primary care provider in 5-7 days if symptoms do not improve. Anticipatory guidance and warning symptoms were reviewed with the patient. Verbalized understanding and agrees with plan of care. - Differential Dx/Diagnosis Differential Diagnosis/HQI/PQRI: Sinusitis, URI Provider Diagnosis: Acute sinusitis Discharge - Sign-Out/Discharge Documenting (check all that apply): Patient Departure All imaging exams completed and their final reports reviewed: No Studies - Discharge Plan Condition: Stable Disposition: HOME Prescriptions: Amoxicillin/Clavulanate TAB* [Augmentin TAB 875*] 875 mg PO BID #20 tab Fluticasone NASAL SPRAY 50MCG* [Flonase NASAL SPRAY 50MCG*] 2 spray BOTH NARES DAILY #1 btl Patient Education Materials: Sinusitis (ED) Referrals: Christina Garvin MD [Primary Care Provider] - 5 Days Additional Instructions: Your history and exam are consistent with a sinus infection. considering the duration of your symptoms we will treat you with an antibiotic for your infection. Take Augmentin 875 mg 1 tab twice a day for 10 days. Take with food to avoid upset stomach. Be sure to take the full course even if feeling better. Drink plenty of fluids to avoid dehydration especially if you are running any fever. Use a saline rinse kit such as Neti Pot or NeilMed at least twice a day to help thin secretions and promote drainage of the sinuses. Use fluticasone (Flonase) nasal spray 2 sprays each nostril once daily. Take over the counter acetaminophen (Tylenol) or ibuprofen (Advil, Motrin) according to directions as needed for pain or fever. Follow up with your primary care provider in 5-7 days if symptoms persist. Seek immediate medical attention in the emergency room if you have fever greater than 100.5 F despite taking acetaminophen or ibuprofen, have chest pain , difficulty breathing, are unable to swallow, or have any worsening of symptoms. - Billing Disposition and Condition Condition: STABLE Disposition: Home - Attestation Statements Provider Attestation: I was available for consult. Pt not seen by me.
== END 2018-06-22 15:16 | disposition home or self-care (01) ==
LOC: UCEAST 13:18
DX: J01.90 Acute sinusitis, unspecified (principal); Z88.2 Allergy status to sulfonamides; Z91.012 Allergy to eggs; Z91.040 Latex allergy status; Z87.891 Personal history of nicotine dependence
CPT/HCPCS: 99212; G0463

== ENCOUNTER 2018-08-18 12:55 | Emergency (ER) | payer BC ==
[2018-08-18 13:18] VITALS: BP 115/54
--- NOTE | 2018-08-23 07:35 | UC ---
Epistaxis Nasal HPI - HPI Summary HPI Summary: pain left nostril x 1 week pain is 4 out of 10 , no radiation , worse by touching the area nothing makes it better, had a nose piercing 2 weeks ago on her left nostril no discharge, no redness , no fever, - History of Current Complaint Chief Complaint: UCRespiratory Stated Complaint: NASAL CONCERN Time Seen by Provider: 08/18/18 13:36 Hx Obtained From: Patient Hx Last Menstrual Period: ~08/07/18 ?: No Onset/Duration: Gradual Onset, Lasting Days - 7, Still Present Timing: Constant Severity Initially: Moderate Severity Currently: Moderate Pain Intensity: 0 Pain Scale Used: 0-10 Numeric Aggravating Factor(s): Other - touch Alleviating Factor(s): Nothing Associated Signs And Symptoms: Positive: Foreign Body. Negative: Bruising, Hematuria, Hematochezia, Sinus Pain, Nasal Discharge, Recent Abnormal Coagulation Studies - Allergies/Home Medications Allergies/Adverse Reactions: Allergies Allergy/AdvReac Type Severity Reaction Status Date / Time egg Allergy Blisters Verified 08/18/18 13:14 Egg Derived Allergy Blisters Verified 08/18/18 13:14 latex Allergy Rash Verified 08/18/18 13:14 Sulfa (Sulfonamide Allergy Rash Verified 08/18/18 13:14 Antibiotics) SPIDER BITES Allergy Severe Swelling Uncoded 08/18/18 13:14 Home Medications: Home Medications LoraTADine TAB(NF) [Claritin 10 MG TAB(NF)] 10 mg PO DAILY PRN 08/18/18 [ History Confirmed 08/18/18] Saline NASAL SPRAY 0.65%* [Sodium Chloride 0.65% Nasal [place]*] 1 spray LEFT NARE SEE INSTRUCTIONS PRN 08/18/18 [History Confirmed 08/18/18] diPHENhydraMINE PO* [Benadryl PO 25 MG TAB*] 12.5 mg PO ONCE 08/18/18 [History Confirmed 08/18/18] PMH/Surg Hx/FS Hx/Imm Hx - Additional Past Medical History Additional PMH: skin cancer, herniated disk Other History Of: Negative For: HIV, Hepatitis B, Hepatitis C, Anticoagulant Therapy - Surgical History Surgical History: Yes Surgery Procedure, Year, and Place: EXCISION SKIN CA LEFT FOREHEAD - Family History Known Family History: Positive: Non-Contributory Negative: Diabetes - Social History Alcohol Use: Rare Substance Use Type: None Smoking Status (MU): Former Smoker Type: Cigarettes Have You Smoked in the Last Year: No When Did the Patient Quit Smoking/Using Tobacco: 2010 - Immunization History Most Recent Influenza Vaccination: [id number] Most Recent Tetanus Shot: UTD Review of Systems All Other Systems Reviewed And Are Negative: Yes Constitutional: Positive: Negative Skin: Positive: Negative Eyes: Positive: Negative ENT: Positive: Negative Respiratory: Positive: Negative Is Patient Immunocompromised?: No Physical Exam Triage Information Reviewed: Yes Appearance: Well-Appearing, No Pain Distress, Well-Nourished Vital Signs: Initial Vital Signs Temp 98.4 F 08/18/18 13:12 Pulse 74 08/18/18 13:12 Resp 18 08/18/18 13:12 BP 115/54 08/18/18 13:12 Pulse Ox 100 08/18/18 13:12 Vital Signs Reviewed: Yes Eye Exam: Normal Eyes: Positive: Conjunctiva Clear ENT: Positive: Normal ENT inspection, Hearing grossly normal, Pharynx normal, TMs normal, Other - left nostril : mild erythema, no swelling, + tenderness. Negative: Nasal congestion, Nasal drainage Respiratory Exam: Normal Respiratory: Positive: Chest non-tender, Lungs clear, Normal breath sounds Cardiovascular: Positive: RRR, No Murmur, Pulses Normal Skin Exam: Normal Epistaxis Nasal Course/Dx - Differential Dx/Diagnosis Provider Diagnosis: Nostril infection Discharge - Sign-Out/Discharge Documenting (check all that apply): Patient Departure All imaging exams completed and their final reports reviewed: No Studies - Discharge Plan Condition: Stable Disposition: HOME Prescriptions: Mupirocin 2% OINT* [Bactroban 2 % Oint*] 1 applic TOPICAL BID #1 tube Patient Education Materials: Cellulitis (ED) Referrals: Christina Garvin MD [Primary Care Provider] - 7 Days Additional Instructions: infection / inflammation of the left nostril - Billing Disposition and Condition Condition: STABLE Disposition: Home
== END 2018-08-18 13:55 | disposition home or self-care (01) ==
LOC: UCCORT 12:55
DX: J34.89 Other specified disorders of nose and nasal sinuses (principal); Z85.828 Personal history of other malignant neoplasm of skin; Z87.891 Personal history of nicotine dependence
CPT/HCPCS: 99212; G0463

== ENCOUNTER 2018-11-01 15:24 | Emergency (ER) | payer BC ==
[2018-11-01 15:41] VITALS: BP 131/62
--- NOTE | 2018-11-01 15:56 | UC ---
UC General HPI - HPI Summary HPI Summary: while singing yesterday, pt noted some L throat discomfort. today she looked in her throat and noted a white. no fever, uri. - History of Current Complaint Chief Complaint: UCGeneralIllness Stated Complaint: ST Time Seen by Provider: 11/01/18 15:46 Hx Obtained From: Patient Hx Last Menstrual Period: 10/31/18 Pain Intensity: 0 - Allergy/Home Medications Allergies/Adverse Reactions: Allergies Allergy/AdvReac Type Severity Reaction Status Date / Time egg Allergy Blisters Verified 11/01/18 15:41 Egg Derived Allergy Blisters Verified 11/01/18 15:41 latex Allergy Rash Verified 11/01/18 15:41 Sulfa (Sulfonamide Allergy Rash Verified 11/01/18 15:41 Antibiotics) SPIDER BITES Allergy Severe Swelling Uncoded 11/01/18 15:41 Home Medications: Home Medications Acetaminophen [Tylenol Extra Strength] 1 tab PO BID 11/01/18 [History Confirmed 11/01/18] Ibuprofen TAB* [Advil TAB*] 2 tab PO DAILY 11/01/18 [History Confirmed 11/01/18] PMH/Surg Hx/FS Hx/Imm Hx Previously Healthy: Yes Other History Of: Negative For: HIV, Hepatitis B, Hepatitis C, Anticoagulant Therapy - Surgical History Surgical History: Yes Surgery Procedure, Year, and Place: EXCISION SKIN CA LEFT FOREHEAD - Family History Known Family History: Positive: Non-Contributory Negative: Diabetes - Social History Alcohol Use: Rare Substance Use Type: Marijuana Substance Use Comment - Amount & Last Used: occasionally Smoking Status (MU): Former Smoker Type: Cigarettes Have You Smoked in the Last Year: No When Did the Patient Quit Smoking/Using Tobacco: 2009 - Immunization History Most Recent Influenza Vaccination: [id number] Most Recent Tetanus Shot: UTD Review of Systems All Other Systems Reviewed And Are Negative: No Constitutional: Negative: Fever, Chills Skin: Negative: Rash Eyes: Negative: Eye Redness ENT: Positive: Sore Throat. Negative: Ear Ache, Sinus Congestion Physical Exam Triage Information Reviewed: Yes Appearance: Well-Appearing Vital Signs: Initial Vital Signs Temp 97.5 F 11/01/18 15:34 Pulse 73 11/01/18 15:34 Resp 16 11/01/18 15:34 BP 131/62 11/01/18 15:34 Pulse Ox 98 11/01/18 15:34 Vital Signs Reviewed: Yes Eyes: Positive: Conjunctiva Clear ENT: Positive: Pharyngeal erythema - ? slight. 2mm firm white to yellow spot on L side of pharynx. Does not come off with tongue depressor., TMs normal, Uvula midline. Negative: Nasal congestion, Nasal drainage, Tonsillar swelling, Trismus, Muffled voice, Hoarse voice Neck: Positive: Supple, Tenderness @ - 2 left anterior cervical chain nodes that are slightly swollen. Respiratory: Positive: Lungs clear, Normal breath sounds Cardiovascular: Positive: RRR Neurological: Positive: Alert Psychological: Positive: Age Appropriate Behavior Skin Exam: Normal Skin: Negative: Rashes Diagnostics - Laboratory Lab Results: rapid strep=negative Course/Dx - Differential Dx - Multi-Symptom Differential Diagnoses: Other - rapid strep=negative. probable tobsil stone. since cervical adenopathy, will refer to ent. - Diagnoses Provider Diagnosis: Tonsil stone, Anterior cervical adenopathy Discharge ED - Sign-Out/Discharge Documenting (check all that apply): Patient Departure All imaging exams completed and their final reports reviewed: No Studies - Discharge Plan Condition: Stable Disposition: HOME Patient Education Materials: Lymphadenopathy (ED) Referrals: Santos Jorgensen MD [Medical Doctor] - As Soon As Possible Additional Instructions: ASK TO BE SEEN IN [place] OFFICE - Billing Disposition and Condition Condition: STABLE Disposition: Home
== END 2018-11-01 16:20 | disposition home or self-care (01) ==
LOC: UCCORT 15:24
DX: J35.8 Other chronic diseases of tonsils and adenoids (principal); R59.0 Localized enlarged lymph nodes; Z88.2 Allergy status to sulfonamides; Z91.012 Allergy to eggs; Z91.040 Latex allergy status; Z87.891 Personal history of nicotine dependence
CPT/HCPCS: 87651; 99211; G0463

== ENCOUNTER 2019-04-16 10:23 | Emergency (ER) | payer BC ==
--- OUTSIDE RECORDS SUMMARY | 2019-04-16 10:44 | XMS REPORT | Summary of Care ---
:1965 Author Organization [facility] Address [address] [place] [id number] Care Team Providers Name Role Phone Christina Garvin MD Primary Care Provider Reason for Visit Reason Comments Physical ppd Encounter Details Date Type Department Care Team Description 04/04/2019 Office Visit [facility] adult exam (Primary Dx); Practice Christina Chatman MD Screening for tuberculosis; [address] Screening for diabetes mellitus; [place] [address] [place] [address] Screening for lipid disorders; [phone] Screen for colon cancer; Thyroid nodule; Need for vaccination; Screening mammogram, encounter for Allergies Active Allergy Reactions Severity Noted Date Comments Latex Rash Medium 04/08/2017 Sulfa Antibiotics Rash Medium 04/08/2017 documented as of this encounter (statuses as of 04/04/2019) Medications No known medicationsdocumented as of this encounter (statuses as of 04/04/2019) Active Problems Problem Noted Date BMI 37.0-37.9, adult 04/08/2017 Blood type A- documented as of this encounter (statuses as of 04/04/2019) Immunizations Name Administration Dates Next Due Hepatitis B Vaccine 10/16/1999, 08/01/1999, 03/15/1999 Influenza (IM) Preservative Free 04/04/2019, 04/20/2018 MMR VACCINE 04/15/1994, 05/12/1976 TDAP Vaccine 02/22/2015 documented as of this encounter Social History Tobacco Use Types Packs/Day Years Used Date Former Smoker 20 Quit: 02/19/2010 Smokeless Tobacco: Never Used Comments: peak was 1 ppd, cut to 1/4 ppd, then went up, then quit Alcohol Use Drinks/Week oz/Week Comments Yes rarely Sex Assigned at Date Recorded Not on file Job Start Date Occupation Industry Not on file Not on file Not on file Travel History Travel Start Travel End No recent travel history available. documented as of this encounter Last Filed Vital Signs Vital Sign Reading Time Taken Comments Blood Pressure 130/70 04/04/2019 8:56 AM EST Pulse 76 04/04/2019 8:56 AM EST Temperature 37.4 04/04/2019 8:56 AM EST C (99.4 F) Respiratory Rate - - Oxygen Saturation 98% 04/04/2019 8:56 AM EST Inhaled Oxygen Concentration - - Weight 117 kg (258 lb) 04/04/2019 8:56 AM EST Height 170.2 cm (5' 7") 04/04/2019 8:56 AM EST Body Mass Index 40.41 04/04/2019 8:56 AM EST documented in this encounter Patient Instructions Patient InstructionsChristina Garvin MD - 04/04/2019 8:40 AM JO ANN did your physical exam today, ordered laboratory tests and a mammogram. We placed a ppd: Return in 2 days to have this read. Bring your work physical exam form with you to that visit. We gave you a influenza vaccine today. Send in your Cologuard colon cancer screening test. DIET AND EXERCISE: Exercise is recommended 150 minutes weekly: 30 minutes five days a week of moderate exercise such as walking. In addition is it recommended you have two days weekly of working all your major muscle groups (arms, legs) such as with weight lifting or other exercise. I recommend a well balanced healthy diet, portion control, drink plenty of fluids. The Mediterranean diet is an excellent diet. Be sure to get adequate sleep at night, 8 hours. documented in this encounter Progress Notes Christina Garvin MD - 04/04/2019 8:40 AM EST Nursing Notes: Domenica Wiseman LPN 04/04/2019 9:04 AM Signed Chief Complaint Patient presents with Physical ppd Subjective: Tessa Arango is a 53-y.o. year old female who presents for annual exam: Needs this and ppd for work. Patient Active Problem List Diagnosis Blood type A- BMI 37.0-37.9, adult Acute new problems include: Lump right foot from old boots: Improving Had tonsil stones and saw Dr Caldera. Also a thyroid nodule. Bx was done and negative. Plan in 2 year recheck Health maintainance concerns include: Pap smear normal 2018, due for colon cancer screen, influenzavaccine agrees, Tdap: 2016, Shingrix recommended but not yet available today Donates blood regularly so HIV checked regularly. I referred her for a colonoscopy last year: Never went. Cologuard ordered 2018 vs colonoscopy. Health Maintenance Topic Date Due ZOSTER IMMUNIZATION SERIES (1 of 2) 07/21/2017 Colonoscopy 07/21/2017 DIABETES SCREENING 04/08/2018 INFLUENZA VACCINE (1) 10/23/2018 MAMMOGRAM (SCREENING) 05/11/2019 DEPRESSION SCREENING 04/04/2020 PAP SMEAR 04/06/2021 LIPID DISORDER SCREENING 04/08/2022 DTaP/Tdap/Td Vaccines (2 - Tdap) 02/22/2025 HEPATITIS A IMMUNIZATION SERIES Aged Out HPV IMMUNIZATION SERIES Aged Out MENINGOCOCCAL VACCINE IMM Aged Out PNEUMOCOCCAL 0-64 YRS Aged Out Immunization History Administered Date(s) Administered Hepatitis B Vaccine 03/15/1999, 08/01/1999, 10/16/1999 Influenza (IM) Preservative Free 04/20/2018 MMR VACCINE 05/12/1976, 04/15/1994 TDAP Vaccine 02/22/2015 Pended Date(s) Pended Influenza (IM) Preservative Free 04/04/2019 Office Visit on 04/06/2018 Component Date Value Ref Range Status Lot Number 04/06/2018 [id number] Final Site 04/06/2018 right forearm Final Erythema 04/06/2018 pink Final pink at site about size of a nickel Induration 04/06/2018 0 0 - 15 MM Final Positive or Negative (PPD) 04/06/2018 Negative Negative - Positive Final Expiration Date 04/06/2018 05/27/20 Final Date Resulted 04/06/2018 Final Results 04/06/2018 SEE COMMENT Final Comment: GYNECOLOGICAL CYTOLOGY REPORT THINPREP TIS AND HPV mRNA E6/E7 Thinprep-TIS REPORT STATUS: FINAL CLINICAL INFORMATION: Information not provided LMP: 03/18/2018 SLIDES / SOURCE: 1 / Cervix, Endocervix STATEMENT OF ADEQUACY: Satisfactory for evaluation. Endocervical/transformation zone component present. INTERPRETATION/RESULT: Negative for intraepithelial lesion or malignancy. COMMENT: This Pap test has been evaluated with computer assisted technology. SACK LIFTER: JANE WILDER(ASCP) For informational Purposes: All cytology specimens are [facility] and [facility]. [address] [place] [id number] The Pap is a screening test for cervical cancer. It is not a diagnostic test and is subject to false negative and false positive results. It is most reliable when a satisfactory sample, regularly obtained, is submitted with relevant clinical findings and history, and when the Pap result is evaluated along with historic and current clinical information. HPV mRNA E6/E7 HPV mRNA E6E7 Not Detected REFERENCE RANGE: NOT DETECTED This test was performed using the APTIMA HPV Assay ([employer] This assay detects E6/E7 viral messenger RNA (mRNA) from 14 high-risk HPV types (16,18,31,33,35,39,45,51,52,56,58,59,66,68). Lab Results Component Value Date NA 140 04/08/2017 K 3.9 04/08/2017 CL 105 04/08/2017 CO2 28 04/08/2017 GLUCOSE 100 (H) 04/08/2017 BUN 15 04/08/2017 CREATININE 0.7 04/08/2017 CALCIUM 8.9 04/08/2017 TP 6.3 04/08/2017 ALBUMIN 3.8 04/08/2017 AST 25 04/08/2017 ALT 29 04/08/2017 ALK 41 04/08/2017 TBILI 0.4 04/08/2017 EGFR >60 04/08/2017 Lab Results Component Value Date CHOL 198 04/08/2017 TRIG 140 04/08/2017 HDL 38 04/08/2017 LDL 132 (H) 04/08/2017 LDLHDLRATIO 3.5 04/08/2017 CHOLHDLRATIO 5.2 04/08/2017 Past Medical History: Diagnosis Date Blood donor a few times a year Blood type A- No current outpatient medications on file. No current facility-administered medications for this visit. Latex and Sulfa antibiotics Social History Tobacco Use Smoking status: Former Smoker Years: 20.00 Last attempt to quit: 02/19/2010 Years since quittin.1 Smokeless tobacco: Never Used Tobacco comment: peak was 1 ppd, cut to 1/4 ppd, then went up, then quit Substance Use Topics Alcohol use: Yes Comment: rarely Drug use: No Family History Problem Relation Age of Onset Dementia Father No Known Problems Daughter No Known Problems Son No Known Problems Sister Cancer Other multiple in cousins Diabetes Other P G uncles Heart Maternal Aunt MGA: pacemaker in her 40s, after Hypertension Paternal Grandfather Heart Paternal Grandfather Cancer Paternal Aunt renal, lung Blood Disease Sister anemia Breast Cancer Paternal Aunt 40s, brain cancer Ovarian Cancer Paternal Aunt Review of Systems - General ROS: negative for - chills or fever, unexpected weight changes ENT ROS: negative for - headaches, nasal congestion, visual changes Respiratory ROS: negative for - cough, shortness of breath Cardiovascular ROS: negative for - chest pain, dyspnea on exertion, edema or palpitations Gastrointestinal ROS: no abdominal pain, change in bowel habits, or black or bloody stools Genito-Urinary ROS: no dysuria, trouble voiding, or hematuria, pelvic pain, heavy menses Objective: BP 130/70 Pulse 76 Temp 99.4 F (37.4 C) Ht 5' 7" (1.702 m) Wt 258 lb (117 kg) SpO2 98%BMI 40.41 kg/m2 Physical Examination: General appearance - alert, well appearing, and in no distress Mental status - alert, oriented to person, place, and time, normal mood, behavior, speech, dress, motor activity, and thought processes Eyes - pupils equal and reactive, extraocular eye movements intact, sclera anicteric Ears - bilateral TM's and external ear canals normal Neck - supple, no significant adenopathy, carotids upstroke normal bilaterally, no bruits, thyroid exam: thyroid is normal in size without nodules or tenderness , no neck masses palpated. Chest/Lungs - clear to auscultation, no wheezes, rales or rhonchi, symmetric air entry, good aeration Heart - normal rate, regular rhythm, normal S1, S2, no murmurs, rubs, clicks or gallops Abdomen - soft, nontender, nondistended, no masses or organomegaly, bowel sounds normal Neurological - alert, oriented, normal speech, no gross focal findings or movement disorder noted Extremities - peripheral pulses normal, no pedal edema, no clubbing or cyanosis Breasts are symmetric. No dominant, discrete, fixed or suspicious masses are noted. No skin or nipple changes or axillary nodes. Assessment/Plan: Healthy female ICD-9-CM ICD-10-CM 1. Well adult exam V70.0 Z00.00 2. Screening for tuberculosis V74.1 Z11.1 PPD 3. Screening for diabetes mellitus V77.1 Z13.1 COMPREHENSIVE METABOLIC PANEL 4. Screening for lipid disorders V77.91 Z13.220 LIPID PROFILE 5. Screen for colon cancer V76.51 Z12.11 6. Thyroid nodule 241.0 E04.1 THYROID STIMULATING HORMONE FREE T4 7. Need for vaccination V05.9 Z23 [place] FLU VACCINE PRES FREE 6MOS+ ADMINISTRATION VACCINE SINGLE 8. Screening mammogram, encounter for V76.12 Z12.31 MAMMO SCREENING TOMOSYNTHESIS BILATERAL 1. Routine Screening: Screening for osteoporosis? Due age 67 Pap smear: Sent at patient request Mammography: Due in april Cholesterol: ordered Screen for Type 2 DM w/fasting plasma glucose: ordered Colon Ca screening with colonoscopy: recommended Screening for HIV: Donates blood regularly so declines today 2. Immunizations today:agrees to influenza vaccine today 3. Preventative Counseling: healthy dietary guidelines, proper exercise Work physical exam form completed. Return in 2 days to read ppd, bring form with you . Patient Instructions I did your physical exam today, ordered laboratory tests and a mammogram. We placed a ppd: Return in 2 days to have this read. Bring your work physical exam form with you to that visit. We gave you a influenza vaccine today. DIET AND EXERCISE: Exercise is recommended 150 minutes weekly: 30 minutes five days a week of moderate exercise such as walking. In addition is it recommended you have two days weekly of working all your major muscle groups (arms, legs) such as with weight lifting or other exercise. I recommend a well balanced healthy diet, portion control, drink plenty of fluids. The Mediterranean diet is an excellent diet. Be sure to get adequate sleep at night, 8 hours. Author: Christina Garvin MD 04/04/2019 09:12 documented in this encounter Plan of Treatment Date Type Specialty Care Team Description 04/06/2019 Nurse/Clinical Support Internal Medicine 05/16/2019 Ancillary Procedure Radiology Name Type Priority Associated Diagnoses Date/Time COMPREHENSIVE METABOLIC Lab Routine Screening for diabetes 04/04/2019 9: 54 AM PANEL mellitus EST LIPID PROFILE Lab Routine Screening for lipid 04/04/2019 9:54 AM disorders EST THYROID STIMULATING Lab Routine Thyroid nodule 04/04/2019 9:54 AM HORMONE EST FREE T4 Lab Routine Thyroid nodule 04/04/2019 9:54 AM EST Name Type Priority Associated Diagnoses Order Schedule PPD POCT Routine Screening for Ordered: tuberculosis 04/04/2019 COMPREHENSIVE METABOLIC Lab Routine Screening for diabetes Expected: PANEL mellitus 07/03/2019 (Approximate), Expires: 04/04/2020 LIPID PROFILE Lab Routine Screening for lipid Expected: disorders 04/04/2019 (Approximate), Expires: 04/04/2020 THYROID STIMULATING Lab Routine Thyroid nodule Expected: HORMONE 04/04/2019 (Approximate), Expires: 04/04/2020 FREE T4 Lab Routine Thyroid nodule Expected: 04/04/2019 (Approximate), Expires: 04/04/2020 ADMINISTRATION VACCINE Procedures Routine Need for vaccination Ordered: SINGLE 04/04/2019 MAMMO SCREENING Imaging Routine Screening mammogram, Expected: TOMOSYNTHESIS BILATERAL encounter for 05/12/2019, Expires: 07/02/2020 Health Maintenance Due Date Last Done Comments Colonoscopy 07/21/2017 ZOSTER IMMUNIZATION SERIES (1 07/21/2017 of 2) DIABETES SCREENING 04/08/2018 04/08/2017 INFLUENZA VACCINE (#1) 2018 04/20/2018 MAMMOGRAM (SCREENING) 05/11/2019 05/10/2018, 04/20/2017, 10/20/2012 DEPRESSION SCREENING 04/04/2020 04/04/2019 PAP SMEAR 04/06/2021 04/06/2018, 04/08/2017 LIPID DISORDER SCREENING 04/08/2022 04/08/2017 DTaP/Tdap/Td Vaccines (2 - 02/22/2025 02/22/2015 Tdap) HEPATITIS A IMMUNIZATION Aged Out No longer eligible based SERIES on patient's age to complete this topic HPV IMMUNIZATION SERIES Aged Out No longer eligible based on patient's age to complete this topic MENINGOCOCCAL VACCINE IMM Aged Out No longer eligible based on patient's age to complete this topic PNEUMOCOCCAL 0-64 YRS Aged Out No longer eligible based on patient's age to complete this topic documented as of this encounter Results Not on filedocumented in this encounter Visit Diagnoses Diagnosis Well adult exam Routine general medical examination at a health care facility Screening for tuberculosis Screening examination for pulmonary tuberculosis Screening for diabetes mellitus Screening for lipid disorders Screen for colon cancer Special screening for malignant neoplasms, colon Thyroid nodule Nontoxic uninodular goiter Need for vaccination Need for prophylactic vaccination and inoculation against unspecified single disease Screening mammogram, encounter for documented in this encounter Insurance Payer Benefit Plan / Subscriber ID Effective Dates Phone Address Type Group [employer] ESSENTIAL xxxxxxxxxxxx 2016-Present [employer] documented as of this encounter Advance Directives Type Date 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
[2019-04-16 10:53] VITALS: BP 129/77
[2019-04-16 11:25] LABS: Influenza B Molecular POSITIVE (Negative)
--- NOTE | 2019-04-16 11:54 | UC ---
FLU HPI - HPI Summary HPI Summary: C/O 2 days of fevers with cough, body aches and headaches. Wheezing. 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 - Allergy/Home Medications Allergies/Adverse Reactions: Allergies Allergy/AdvReac Type Severity Reaction Status Date / Time egg Allergy Blisters Verified 04/16/19 10:43 Egg Derived Allergy Blisters Verified 04/16/19 10:43 latex Allergy Rash Verified 04/16/19 10:43 Sulfa (Sulfonamide Allergy Rash Verified 04/16/19 10:43 Antibiotics) SPIDER BITES Allergy Severe Swelling Uncoded 04/16/19 10:43 Home Medications: Home Medications Ibuprofen TAB* [Advil TAB*] 1 tab PO PRN 11/01/18 [History Confirmed 11/01/18] Oseltamivir CAP* [Tamiflu CAP*] 75 mg PO BID #10 cap 04/16/19 [Rx] guaiFENesin 100 mg/5 ml LIQ [Robitussin 100 mg/5ml LIQ] 10 ml PO Q4H PRN [History Confirmed 04/16/19] predniSONE 20 mg TAB [Deltasone 20 MG TAB*] 60 mg PO DAILY #18 tab 04/16/19 [Rx] PMH/Surg Hx/FS Hx/Imm Hx Other Cancer History: Skin cancer Other History Of: Negative For: HIV, Hepatitis B, Hepatitis C, Anticoagulant Therapy - Surgical History Surgical History: Yes Surgery Procedure, Year, and Place: EXCISION SKIN CA LEFT FOREHEAD - Family History Known Family History: Positive: Non-Contributory Negative: Diabetes - Social History 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 Lives: With Family Alcohol Use: Rare Substance Use Type: Marijuana Substance Use Comment - Amount & Last Used: occasionally Smoking Status (MU): Former Smoker Type: Cigarettes Have You Smoked in the Last Year: No When Did the Patient Quit Smoking/Using Tobacco: 2009 - Immunization History Most Recent Influenza Vaccination: [id number] Most Recent Tetanus Shot: UTD Review of Systems All Other Systems Reviewed And Are Negative: Yes Constitutional: Positive: Fever, Chills, Fatigue Respiratory: Positive: Shortness Of Breath, Cough Physical Exam Triage Information Reviewed: Yes Appearance: No Pain Distress, Well-Nourished, Ill-Appearing Vital Signs: Initial Vital Signs Temp 98.8 F 04/16/19 10:45 Pulse 73 04/16/19 10:45 Resp 20 04/16/19 10:45 BP 129/77 04/16/19 10:45 Pulse Ox 99 04/16/19 10:45 Vital Signs Reviewed: Yes Eyes: Positive: Conjunctiva Inflamed ENT: Positive: Pharynx normal, TMs normal Neck exam: Normal Respiratory: Positive: Wheezing - expiratory wheeze with coughing. Cardiovascular Exam: Normal Musculoskeletal Exam: Normal Neurological Exam: Normal Psychological Exam: Normal Skin Exam: Normal Flu Course/Dx - Differential Dx/Diagnosis Differential Diagnosis/HQI/PQRI: Influenza, Pneumonia, Upper Respiratory Infection Provider Diagnosis: Influenza B, Acute bronchospasm Discharge ED - Sign-Out/Discharge Documenting (check all that apply): Patient Departure All imaging exams completed and their final reports reviewed: No Studies - Discharge Plan Condition: Stable Disposition: HOME Prescriptions: Oseltamivir CAP* [Tamiflu CAP*] 75 mg PO BID #10 cap predniSONE 20 mg TAB [Deltasone 20 MG TAB*] 60 mg PO DAILY #18 tab Patient Education Materials: Influenza (ED), Bronchospasm (ED) Forms: *Work Release Referrals: Christina Garvin MD [Primary Care Provider] - - Billing Disposition and Condition Condition: STABLE Disposition: Home
== END 2019-04-16 12:07 | disposition home or self-care (01) ==
LOC: UCCORT 10:23
DX: J10.1 Influenza due to other identified influenza virus with other respiratory manifestations (principal); J98.01 Acute bronchospasm; Z85.828 Personal history of other malignant neoplasm of skin; Z87.891 Personal history of nicotine dependence; Z91.012 Allergy to eggs; Z91.040 Latex allergy status; Z88.2 Allergy status to sulfonamides; Z91.038 Other insect allergy status
CPT/HCPCS: 99202; G0463